=== PATIENT | male | born 1960 | race Caucasian/White ===

== ENCOUNTER → 2017-09-03 | Outpatient (CLI) | payer BC ==
[~2017-09-03] MED LIST: ACETAMINOPHEN650 M6 PO; ASCORBIC ACID500 M3 PO; ATORVASTATIN CA40 MG PO; Ascorbic Acid,Ester- PO; Calan SR,Covera HS,I PO; GLUCOSAMINE &1 EAC1 PO; LYRICA75 MG PO; Lipitor PO; MULTIPLE VITAM1 EACH PO; Neurontin PO; OMEGA-31000 M1 PO; Omega III EPA + DHA PO; Osteo-Biflex,Flex-A- PO; PARAFON FORTE500 MG PO; PAROXETINE HCL20 MG PO; Paxil PO; TYLENOL ARTHRI650 MG PO; Theragran PO; VERAPAMIL HCL240 MG PO; ZESTORETIC 20-1 EAC1 NG; Zestoretic,Prinzide PO; [UNRECOGNIZED DRUG - OTHER] PO
== END | disposition home or self-care (01) ==
LOC: CDC 08:12
DX: Z01.810 Encounter for preprocedural cardiovascular examination (principal); M48.00 Spinal stenosis, site unspecified
CPT/HCPCS: 93000

== ENCOUNTER 2017-10-11 22:49 | Inpatient (IN) | payer BC ==
[~2017-10-11] VITALS: Ht 188 cm; Wt 76.8 kg
[2017-10-11 23:18] LABS: HEMATOCRIT 46.6 % (38.0-50.0); MCHC 34.8 G/DL (30.0-36.0); MCV 92.1 FL (86-99); MEAN PLAT.VOLUME 10.2 uM^3 (9.0-12.4); PLATELET COUNT 258 K/uL (156-360); RBC DIS.WIDTH-CV 13.1 % (11.8-14.6); RBC DIS.WIDTH-SD 44.1 % (39-53); RED BLOOD COUNT 5.06 M/uL (4.00-5.50)
[2017-10-11 23:19] LABS: ANION GAP 13 MEQ/L (2-14); CHLORIDE 102 mEq/L (99-109); CREATININE 1.1 mg/dL (0.6-1.3); GLUCOSE 106 mg/dL (70-99); ISTAT DEVICE 359068; POTASSIUM > 6.0 mEq/L (3.7-5.4); SODIUM 139 mEq/L (136-147); UREA NITROGEN (BUN) 35 mg/dL (9-23)
[2017-10-11 23:40] LABS: TROP-I INTERPRETATION NEGATIVE; TROPONIN-I < 0.01 ng/mL (0.0-0.30)
[2017-10-11 23:54] LABS: CHLORIDE 104 mEq/L (99-109); POTASSIUM 3.7 mEq/L (3.7-5.4); SODIUM 139 mEq/L (136-147)
[2017-10-11 23:55] LABS: GLUCOSE 116 mg/dL (70-99)
[2017-10-11 23:57] LABS: ANION GAP 10 MEQ/L (2-14)
[2017-10-11 23:59] LABS: GFR ESTIMATE (CALCULATED) > 59 mL/min/
[2017-10-12] VITALS (8 sets, daily range): BP systolic 142–178; BP diastolic 77–106
[2017-10-12] LABS: UREA NITROGEN (BUN) 23 mg/dL (9-23)
[2017-10-12] MEDS ORDERED: DULOXETINE HCL60 MG PO (00:59)
[2017-10-12] MEDS ORDERED: DIAZEPAM5 MG PO (01:02)
[2017-10-12] MEDS ORDERED: MELOXICAM15 MG PO (02:05)
[2017-10-12] MEDS ORDERED: AFRIN,GENASAL D15 ML BOTH NARES (02:06)
[2017-10-12 12:55] LABS: PROTHROMBIN TIME 11.9 SEC (10.2-12.9)
[2017-10-12 12:58] LABS: PTT 31.3 SEC (25-37)
[2017-10-12 20:50] LABS: INTER. NORMALIZED RATIO 1.1; PROTHROMBIN TIME 12.3 SEC (10.2-12.9)
[2017-10-12 22:19] LABS: PTT 47.3 SEC (25-37)
[2017-10-13 03:45] VITALS: BP 141/96
[2017-10-13 04:28] VITALS: BP 153/111
[2017-10-13 07:53] VITALS: BP 157/94
[2017-10-13 09:42] LABS: EOSINOPHIL (%) 2.5 % (0-5); EOSINOPHIL COUNT 0.2 K/uL (0-0.3); HEMATOCRIT 45.1 % (38.0-50.0); IMMATURE GRANULOCYTE (%) 0.2 % (0.0-0.7); INSTRUMENT ABS NEUTROPHIL CT 5.9 K/uL; LYMPHOCYTE COUNT 1.6 K/uL (1.0-2.8); MCHC 33.9 G/DL (30.0-36.0); MCV 91.5 FL (86-99); MEAN PLAT.VOLUME 8.9 uM^3 (9.0-12.4); MONOCYTE (%) 3.9 % (3-12); MONOCYTE COUNT 0.3 K/uL (0-0.8); NEUTROPHIL (%) 73.2 % (45-76); NEUTROPHIL COUNT 5.9 K/uL (1.8-6.4); PLATELET COUNT 283 K/uL (156-360); RBC DIS.WIDTH-CV 12.8 % (11.8-14.6); RBC DIS.WIDTH-SD 43.2 % (39-53); RED BLOOD COUNT 4.93 M/uL (4.00-5.50)
[2017-10-13 10:05] LABS: ALKALINE PHOSPHATASE 90 IU/L (3-129); ANION GAP 12 MEQ/L (2-14); CHLORIDE 103 MEQ/L (99-109); GFR ESTIMATE (CALCULATED) > 59 mL/min/; GLUCOSE 164 mg/dL (70-99); HDL CHOLESTEROL 54 MG/DL (Desirable>=40); LDL CHOLESTEROL 105 mg/dL (Desirable<100); NON-HDL CHOLESTEROL 131 mg/dL (Desirable<160); POTASSIUM 3.8 MEQ/L (3.7-5.4); SAMPLE HEMOLYSIS CHECK 0; SAMPLE ICTERIC CHECK 0; SAMPLE LIPEMIA CHECK 0; SODIUM 141 MEQ/L (136-147); TOTAL BILIRUBIN 0.5 MG/DL (0.0-1.0); TOTAL CHOLESTEROL 185 mg/dL (Desirable<200); TRIGLYCERIDES 129 MG/DL (Normal: <150); UREA NITROGEN (BUN) 18 mg/dL (9-23)
[2017-10-13] MEDS ORDERED: CLOPIDOGREL75 MG PO (11:15)
[2017-10-13] MEDS ORDERED: CEFTIN500 MG PO (11:16)
[2017-10-13 11:58] VITALS: BP 168/98
[2017-10-14 07:09] LABS: Estimated Average Glucose 114 mg/dL (70-123); HEMOGLOBIN A1c (GLYCOHEMOGLOB) 5.6 % HGB (Below 5.7)
== END 2017-10-13 13:52 | disposition short-term general hospital (02) | DRG 65 ==
LOC: EME 22:49 → EDOF 10-12 01:23 → ENRESERV 10-12 01:25 → 5SOUTH 10-12 02:20
PROVIDERS: Emergency Medicine; Family Medicine
DX: I63.233 Cerebral infarction due to unspecified occlusion or stenosis of bilateral carotid arteries (principal); R29.701 NIHSS score 1; R29.810 Facial weakness; R47.81 Slurred speech; R13.10 Dysphagia, unspecified; G83.24 Monoplegia of upper limb affecting left nondominant side; E04.1 Nontoxic single thyroid nodule; I10 Essential (primary) hypertension; E78.5 Hyperlipidemia, unspecified; J98.11 Atelectasis; J01.00 Acute maxillary sinusitis, unspecified; F41.9 Anxiety disorder, unspecified; R73.9 Hyperglycemia, unspecified; M54.16 Radiculopathy, lumbar region; M54.2 Cervicalgia; F32.9 Major depressive disorder, single episode, unspecified; Z98.1 Arthrodesis status; Z79.82 Long term (current) use of aspirin
CPT/HCPCS: 70450; 70496; 70498; 70551; 71010; 80047; 80048; 80053; 80061; 83036; 83605; 84443; 84484; 84999; 85025; 85027; 85610; 85730; 93005; 93880; 99281; 99285